=== PATIENT | female | born 1985 | race Native Hawaiian/Other Pacific Islander ===

== ENCOUNTER 2017-12-25 09:12 | Inpatient (IN) | payer OTHER ==
[2017-12-25 09:43] VITALS: BMI 30.3
[2017-12-25] MEDS ORDERED: Lactated Ringer's 1,000 ML IV SCH (10:00)
[2017-12-25] MEDS ORDERED: Oxytocin 30 UNITS in Sodium Chloride 0.9% 500 ML IV SCH (10:00)
[2017-12-25 11:12] LABS: BASO % 0.4 % (0.0-2.0); EOS % 0.5 % (0.0-4.0); LYMPH # 1.5 K/uL (1.0-4.3); LYMPH % 20.5 % (20.0-40.0); MEAN CELL VOLUME 78.9 fl (81.0-99.0); MEAN CORPUSCULAR HGB CONC 31.7 g/dL (33.0-37.0); MEAN PLATELET VOLUME 9.3 fl (7.2-11.7); MONO # 0.5 K/uL (0.0-0.8); MONO % 7.4 % (0.0-10.0); NEUT # 5.3 K/uL (1.8-7.0); NEUT % 71.2 % (50.0-75.0); NRBC % 0.1 % (0.0-0.0); RBC 4.79 Mil/uL (3.80-5.20); RED CELL DISTRIBUTION WIDTH 14.2 % (11.5-14.5); WHITE BLOOD COUNT 7.4 K/uL (4.8-10.8)
[2017-12-25 11:33] LABS: BLOOD UREA NITROGEN 3 mg/dl (7-17); CALCIUM 9.4 mg/dL (8.4-10.2); GFR AFRICAN-AMERICAN > 60; GFR NON-AFRICAN AMERICAN > 60
[2017-12-25] MEDS ORDERED: Fentanyl/Bupivacaine HCl 250 ML EPI ONE (15:18)
[2017-12-25] MEDS ORDERED: Lidocaine 1% Inj (20ml) ONE (19:25)
--- NOTE | 2017-12-25 21:07 | OBADHP ---
Datetime: 12/25/2017 10:07 IP Adm Impression Other: LGA Admit Comment, IP Provider: 32yo with IUP at 39wk presents here today for IOL for LGA. Pt denie s any VB or LOF. Pt reports Good movemnents. Uncomplicated course TOCO- Irregular, FHR- Category 1, Cx- 3-4/80/-2 ( Dr Coronado ) Assessment: IUP at 39wks - LGA Plan: Admit to LND Pitocin for induction of Labor. Pelvic Type - PN: Adequate Extremities - PN: Normal Abdomen - PN: Normal Back - PN: Normal Breast - PN: Normal Lungs - PN: Normal Heart - PN: Normal Thyroid - PN: Normal Neurologic - PN: Normal HEENT - PN: Normal General - PN: Normal Presentation-Admit: Vertex FHR - Baseline A Provider: 150s Membranes, Provider: Intact Comments, ACOG Physical Exam: Abd: Soft, NT, BS- present Gestation - Est Wks by US: 39.1 Vital Signs Provider: Reviewed IP Chief Complaint: Scheduled induction of labor NICHD Variability Prov Fetus A: Moderate 6-25bpm NICHD Accel Fetus A IP Provider: 15X15 FHR Category Provider Fetus A: Category I NICHD Decel Fetus A IP Provider: None Dilatation, Provider: 3-4 Effacement, Provider: 80 Station, Provider: -2 Genitourinary Exam: Normal DTRs - PN: Normal EGA AdmitDate IP: 39.1 IP Adm Impression: Term, intrauterine ; No Active Labor IP Admit Plan: Admit to unit; Initiate labor induction protocol
--- NOTE | 2017-12-25 21:10 | OBDS ---
DELIVERY PERSONNEL Delivery Doctor: Ranjeet Coronado MD Civil Rights Representative: Randy MATERNAL INFORMATION Delivery Anesthesia: Epidural Medications in Delivery: Pitocin 30 units in 500 mls/ Estimated Blood Loss (ml): 250ml Placenta Cultured: No Maternal Complications: None Provider Comments: delivery of live baby boy 9/9 clear fluid with first degree laceration and repair LABOR SUMMARY EDC: 12/31/2017 00:00 No. Babies in Womb: 1 Attempted: No Labor Anesthesia: Epidural LABOR INFORMATION Reason for Induction: Macrosomia Onset of Labor: 12/25/2017 12:05 Complete Dilatation: 12/25/2017 19:16 Oxytocin: Induction Group B Beta Strep: Negative Antibiotics # of Doses: N/A Antibiotics Time of Last Dose: N/A Steroids Given: None Reason Steroids Not Administered: Not Applicable MEMBRANES Membranes Rupture Method: Spontaneous Rupture of Membranes: 12/25/2017 12:05 Length of Rupture (hrs): 8.30 Amniotic Fluid Color: Clear Amniotic Fluid Amount: Small Amniotic Fluid Odor: Normal STAGES OF LABOR Stage 1 hrs: 7 Stage 1 min: 11 Stage 2 hrs: 1 Stage 2 min: 7 Stage 3 hrs: 0 Stage 3 min: 7 Total Time in Labor hrs: 8 Total Time in Labor min: 25 VAGINAL DELIVERY Episiotomy: None Laceration Repair: Yes Laceration Repair Note: repair of first degree laceration with 2-0chromic Initial Vag Sponge Count: 5 Final Vag Sponge Count: 5 Sponge Count Correct: Yes Sharps Count Correct: Yes Count Comment: MD Confirmed correct BABY A INFORMATION Infant Delivery Date/Time: 12/25/2017 20:23 Method of Delivery: Vaginal Born in Route : No : N/A Forceps: N/A Vacuum Extraction: N/A Shoulder Dystocia : No SHOULDER DYSTOCIA BABY A Infant Delivery Date/Time: 12/25/2017 20:23 PRESENTATION/POSITION BABY A Presentation: Cephalic Cephalic Presentation: Vertex Breech Presentation: N/A PLACENTA INFORMATION BABY A Placenta Delivery Time : 12/25/2017 20:30 Placenta Method of Delivery: Spontaneous Placenta Status: Delivered SCORES BABY A Heart Rate 1 min: >100 bpm Resp Effort 1 min: Good Cry Reflex Irritability 1 min: Cough or Sneeze or Pulls Away Muscle Tone 1 min: Active Motion Color 1 min: Body [place], Extremities Blue Resuscitation Effort 1 min: N/A SCORE 1 MIN: 9 Heart Rate 5 min: >100 bpm Resp Effort 5 min: Good Cry Reflex Irritability 5 min: Cough or Sneeze or Pulls Away Muscle Tone 5 min: Active Motion Color 5 min: Body [place], Extremities Blue Resuscitation Effort 5 min: N/A SCORE 5 MIN: 9 INFANT INFORMATION BABY A Gestational Age at Delivery: 39.1 Gestational Status: Term Outcome : Liveborn Infant Condition : Stable Infant Sex: Male IDENTIFICATION/MEDS BABY A ID Band Number: [id number] ID Band Location: Left Leg; Left Arm WEIGHT/LENGTH BABY A Infant Birthweight (gms): 4155 Weight (lb): 9 Weight (oz): 3 CORD INFORMATION BABY A No. Cord Vessels: 3 Nuchal Cord : N/A Nuchal Cord Other: N/A True Knot: N/A Infant Cord pH Baby Arterial: N/A Infant Cord pH Baby Venous: N/A Cord Blood Taken: Yes Banking/Donate Info: [id number] Suction: Mouth; Nose ASSESSMENT BABY A Complications: None Physical Findings at Delivery: Within Normal Limits Infant Respirations: Appears Normal Data Administrator/ALS Called : No Transferred To: Remains with Mother
[2017-12-25] MEDS ORDERED: Benzocaine/Menthol SPRAY TOP PRN (21:12)
[2017-12-25] MEDS ORDERED: Oxycodone/Acetaminophen 5/325 mg Tab PO PRN ×2 (21:12)
[2017-12-25] MEDS ORDERED: Oxytocin 30 UNITS in Sodium Chloride 0.9% 500 ML IV ONE (22:00)
[2017-12-26] MEDS ORDERED: Lactated Ringer's 1,000 ML IV SCH (01:30)
[2017-12-26] MEDS ORDERED: Fentanyl/Bupivacaine HCl 250 ML EPI ONE (01:30)
[2017-12-26] MEDS ORDERED: Benzocaine/Menthol SPRAY TOP PRN (01:30)
[2017-12-26] MEDS ORDERED: Oxycodone/Acetaminophen 5/325 mg Tab PO PRN ×2 (01:30)
[2017-12-26] MEDS: Levothyroxine 75 MCG TAB PO SCH (07:24)
--- NOTE | 2017-12-26 12:44 | OBPPN ---
Datetime: 12/26/2017 12:41 PP Pain Prov: Within normal limits PP Nausea Prov: Denies PP Flatus Prov: Yes PP BM Prov: No PP Breasts Prov: Normal PP Heart Prov: Normal PP Lungs Prov: Normal PP Abdomen/Uterus Prov: Normal PP Lochia Prov: Normal PP Vulva/Perineum Prov: Normal PP CVA Tenderness Prov: Normal PP Extremities Prov: Normal PP Progress Prov: Normal PP Impression Prov: Normal progression PP Plan Prov: Continue present management PP Progress Note Prov: stable ppd1 continue present care IP PP Procedures: None Vital Signs Provider PP: Reviewed; Within Normal Limits
[2017-12-26 21:17] LABS: BASO % 0.1 % (0.0-2.0); EOS # 0.1 K/uL (0.0-0.7); HEMOGLOBIN 10.5 g/dL (12.0-16.0); LYMPH # 2.1 K/uL (1.0-4.3); MEAN CORPUSCULAR HEMOGLOBIN 25.1 pg (27.0-31.0); MEAN CORPUSCULAR HGB CONC 31.4 g/dL (33.0-37.0); MEAN PLATELET VOLUME 9.6 fl (7.2-11.7); MONO # 0.9 K/uL (0.0-0.8); MONO % 8.7 % (0.0-10.0); NEUT # 7.1 K/uL (1.8-7.0); NEUT % 69.2 % (50.0-75.0); RBC 4.18 Mil/uL (3.80-5.20); RED CELL DISTRIBUTION WIDTH 14.1 % (11.5-14.5); WHITE BLOOD COUNT 10.2 K/uL (4.8-10.8)
[2017-12-27] MEDS: Levothyroxine 75 MCG TAB PO SCH (06:46)
--- NOTE | 2017-12-27 11:56 | OBDCSUM ---
Datetime: 12/27/2017 11:55 Discharged to, Provider: Home Follow up at, Provider: Dr Coronado Disch Instr Activity: Bedrest; May be up to bathroom; May be up for meals; May Shower Disch Instr Diet: Regular Discharge Instructions, Provider: Routine instructions given Discharge Diagnosis, Provider: Term Delivered Discharge Time: 12/27/2017 11:55 Follow up in weeks, Provider: 4-6 wks Disch Referrals: None Contraception discussed, Prov: Yes Disch Activity Restrictions: No exercising; No lifting; No driving; Minimize walking; Minimize stair -climbing; No sexual activity; Nothing in vagina - [place], tampons, douche Discharge Comment, Provider: continue PNC vit and iron Contraception after Delivery: Undecided Datetime: 12/27/2017 10:18 Discharged to, Provider: Home Follow up at, Provider: Dr. Coronado Disch Instr Diet: Regular Discharge Diagnosis, Provider: Term Delivered Follow up in weeks, Provider: 6 Weeks Disch Referrals: None Disch Activity Restrictions: No sexual activity; Nothing in vagina - [place], tampons, douche
--- NOTE | 2017-12-27 11:57 | OBPPN ---
Datetime: 12/27/2017 11:37 PP Pain Prov: Within normal limits PP Pain Prov comment: no SOB, chest or leg pains PP Nausea Prov: Denies PP Flatus Prov: Yes PP Nausea Prov comment: voiding well PP Breasts Prov: Normal PP Lungs Prov: Normal PP Abdomen/Uterus Prov: Abnormal PP Lochia Prov: Normal PP Vulva/Perineum Prov: Abnormal PP CVA Tenderness Prov: Normal PP Extremities Prov: Normal PP C/S Incision Prov: Not Applicable PP Progress Prov: Normal PP Comments Phys Exam Prov: breast not engorged, abd soft NT fundus firm below the umb. Perineum re paired Ext no calf tenderness PP Impression Prov: Normal progression PP Plan Prov: Discharge PP Progress Note Prov: Tony/c home with instructions and folllow up office 4-6 wks IP PP Procedures: None Vital Signs Provider PP: Reviewed
[2017-12-27] MEDS ORDERED: Tdap Vaccine 0.5 ml Vial (10-64 yrs) IM ONE (12:00)
[2017-12-27 20:14] VITALS: BP 102/66; PULSE 90; RESP 19; TEMP 97.8; O2SAT 100
== END 2017-12-27 16:00 | disposition home or self-care (01) | DRG 775 ==
LOC: H.EROB2 09:12 → H.L&D 09:55 → H.OB/GYN 12-26 00:17
PROVIDERS: ADMIT Specialist; ATTEND Specialist
PROC: 10E0XZZ Delivery of Products of Conception, External Approach (ICD-10-PCS; principal; 2017-12-25)
PROC: 0HQ9XZZ Repair Perineum Skin, External Approach (ICD-10-PCS; 2017-12-25)
PROC: 4A1HXCZ Monitoring of Products of Conception, Cardiac Rate, External Approach (ICD-10-PCS; 2017-12-25)
PROC: 3E0234Z Introduction of Serum, Toxoid and Vaccine into Muscle, Percutaneous Approach (ICD-10-PCS; 2017-12-27)
DX: O36.63X0 Maternal care for excessive fetal growth, third trimester, not applicable or unspecified (principal); O70.0 First degree perineal laceration during delivery; Z37.0 Single live birth; Z3A.39 39 weeks gestation of pregnancy; Z23 Encounter for immunization